=== PATIENT | female | born 1970 | race Caucasian/White ===

== ENCOUNTER 2018-08-28 19:57 | Emergency (ER) | payer OTHER, SELFPAY ==
[2018-08-28 20:03] VITALS: BP 145/99; PULSE 95; RESP 16; TEMP 36.7; O2SAT 95
[2018-08-28] MEDS: MORPHine 10 MG/ML VIAL 6 MG IVP ×2 (20:13→20:48)
--- NOTE | 2018-08-28 20:14 | ED.GENADUL_ITS ---
Discharge Plan Disposition Patient Disposition: HOME Condition: Stable Discharge Details Chief Complaint: Orthopedic Clinical Impression: Closed left trimalleolar fracture Primary Care Provider: None,None ED Provider: Chano Bean Home Meds and New Rx's Prescriptions: New hydromorphone [Dilaudid] 2 mg tablet 2 mg PO Q6H PRN (Reason: pain) Qty: 12 RF: 0 Discharge Instructions Instructions: Ankle Fracture (ED) Additional Instructions: you have a trimalleolar fracture in the left ankle. You need to contact your primary care provider on Thursday for an orthopedist referral as soon as possible as these are generally operated on within a week for pain take ibuprofen or aleve and tylenol every 6 hours for pain as needed, follow dosing instructions on packaging. If you need more pain meds take 1 dilaudid tablet, do not drive or drink alcohol if you take this medicine Medical Decision Making 47 yo who denies chronic medical problems comes in with chief complaint of left ankle pain after slipping on ice. Denies hitting head or loc. She has no headache, neck pain even on rom, chest pain, abd pain. HAs pain with deformity to the left ankle. Has intact cap refill and sensation with 2+ dp/pt pulses. Will xray as likely has fx/dislocation xray confirms trimalleolar fx. Spoke with Dr. durbin from ortho who suggest closed reduction and f/u this week. [place] so will f/u with orthopedist in their area. She wants to attempt reduction without procedural sedation first. Will try this successful reduction with improved alignment on f/u xray using just IV morphine. Pt will f/u with ortho in [place]. She was instructed to be nonweight bearing Differential Diagnosis fx, dislocation Imaging Data Radiologic Study: Attestation: I personally reviewed and interpreted this imaging study as follows: Imaging: X-Ray Radiologist's impression: FINDINGS: Bones/joints: Acute trimalleolar ankle fracture dislocation. The ankle mortise is disrupted. Approximately 9 mm lateral subluxation of the talus relative to the tibia. Moderately distracted fracture of the medial malleolus of the tibia. Moderately apex medial angulated fracture of the distal fibular diaphysis extending to the level of ankle mortise. Moderately distracted posterior malleolus fracture, tibial plafond and may be somewhat impacted upon the tibia posteriorly. Mild anterior translation of the tibial plafond relative to the talar dome. Anterior widening of the tibiotalar space. Posterior calcaneal spur. No definite defects are identified in the talar dome radiographically. Soft tissues: Generalized soft tissue swelling. IMPRESSION: Acute trimalleolar ankle fracture dislocation. Radiologic Study #2: Attestation: I personally reviewed and interpreted this imaging study as follows: Imaging: X-Ray Radiologist's impression: IMPRESSION: Significant improvement in the alignment of the ankle mortise involving the trimalleolar fracture. HPI General Mode of arrival: wheelchair . Date/Time Provider Initiated Documentation: 08/28/18 19:59 . Limitations to Documentation: no limitations . Information obtained by: patient . History of Present Illness 47 year old F presents to the emergency department with the chief complaint of left ankle pain, described as severe, with intensity rated at 10. Quality is described as sharp, and is localized to the left and lower extremity. Patient reports no radiation. and it has been constant. Rest improves symptom(s), Movement worsens symptoms . Patient notes no other symptoms.. Patient did receive the following treatments prior to arrival, none Related Data Home Medications Medication Instructions Recorded Confirmed hydromorphone [Dilaudid] 2 mg PO Q6H PRN #12 tab 08/28/18 Previous Rx's Medication Instructions Recorded hydromorphone [Dilaudid] 2 mg PO Q6H PRN #12 tab 08/28/18 Allergies Allergy/AdvReac Type Severity Reaction Status Date / Time acetaminophen [From Percocet] Allergy Hives Unverified 08/28/18 20:08 codeine Allergy Hives Unverified 08/28/18 20:08 oxycodone [From Percocet] Allergy Hives Unverified 08/28/18 20:08 General Stated Complaint: Orthopedic ZAC: 3 Review of Systems Review of Systems All systems reviewed & are unremarkable except as noted in HPI and below Constitutional Denies chills and Denies fever(s) ENT Denies change in voice Cardiovascular Denies chest pain and Denies dyspnea Respiratory Denies cough and Denies dyspnea Gastrointestinal Denies abdominal pain, Denies nausea and Denies vomiting Genitourinary Denies dysuria Musculoskeletal Denies joint swelling PFSH Social History Smoking/Tobacco Use Status: Former Tobacco Use Substance use type: does not use Additional Social history: unable to assess privately Exam Const General: no acute distress Orientation: alert HENMT Head: normal to inspection Ears: external ears normal General nose exam: external nose normal Mouth: moist mucous membranes Eyes General: appearance normal, both eyes and all related structures Neck Neck: normal visual inspection Resp Effort & Inspection: normal respiratory effort and able to speak in complete sentences Cardio Rate: regular rate Skin General skin exam: no rashes or lesions noted Neuro General: alert and oriented x3 Extrem General: normal capillary refill Psych Mental Status: mental status grossly normal Course Vital Signs Temperature 36.7 C 08/28/18 20:03 Pulse 95 H 08/28/18 20:03 Respiratory Rate 16 08/28/18 20:03 Blood Pressure 145/99 H 08/28/18 20:03 Pulse Oximetry 95 08/28/18 20:03 Temperature 36.7 C 08/28/18 20:03 Temperature Source Temporal Artery Scan 08/28/18 20:03 Pulse 95 H 08/28/18 20:03 Respiratory Rate 16 08/28/18 20:03 Blood Pressure 145/99 H 08/28/18 20:03 Blood Pressure Position Sitting 08/28/18 20:03 Pulse Oximetry 95 08/28/18 20:03 Oxygen Delivery Method Room Air 08/28/18 20:03 Oxygen Flow Rate 0 08/28/18 20:03 Pain Level 10 08/28/18 20:03
--- NOTE | 2018-08-28 20:29 | DI.RAD_ITS ---
SYMPTOM/DIAGNOSIS: PAIN, S/P FALL, POST REDUCTION VIEWS LEFT ANKLE: Three views. No priors. There is a fracture through the base of the medial malleolus with moderate distraction of the fracture noted. There is an oblique fracture extending from the distal metadiaphyseal junction of the left fibula inferiorly to the level of the ankle joint. The distal fracture is angulated laterally. There is a moderately distracted fracture of the posterior malleolus. The talus is moderately dislocated laterally relative to the tibia. The anterior fracture is also anteriorly displaced relative to the talus. There is soft tissue swelling about the ankle bilaterally. IMPRESSION: Trimalleolar fracture dislocation of the left ankle. POST REDUCTION LEFT ANKLE: Two views. Comparison is made with examination from earlier in the day. There has been significant improvement and alignment of the left ankle. There is still mild widening of the medial ankle joint. There has been significant improvement in the distracted medial malleolar fracture and the displaced distal fibular fracture. The posterior malleolar fracture still shows mild displacement. The patient's ankle is in a cast. IMPRESSION: Significant improvement in the alignment of the left ankle fracture dislocation.
--- NOTE | 2018-08-28 20:38 | DI.VRAD_ITS ---
EXAM: XR Left Ankle Complete, 3 or more Views EXAM DATE/TIME: 08/28/2018 8:09 PM CLINICAL HISTORY: 47 years old, female; Pain; Ankle; Left TECHNIQUE: XR Left ankle 3 or more views. COMPARISON: No relevant prior studies available. FINDINGS: Bones/joints: Acute trimalleolar ankle fracture dislocation. The ankle mortise is disrupted. Approximately 9 mm lateral subluxation of the talus relative to the tibia. Moderately distracted fracture of the medial malleolus of the tibia. Moderately apex medial angulated fracture of the distal fibular diaphysis extending to the level of ankle mortise. Moderately distracted posterior malleolus fracture, tibial plafond and may be somewhat impacted upon the tibia posteriorly. Mild anterior translation of the tibial plafond relative to the talar dome. Anterior widening of the tibiotalar space. Posterior calcaneal spur. No definite defects are identified in the talar dome radiographically. Soft tissues: Generalized soft tissue swelling. IMPRESSION: Acute trimalleolar ankle fracture dislocation. Dictated and Authenticated by: Corina Garcia MD. Ordering:EDUARDO Madden MD
[2018-08-28] MEDS: HYDROmorphone 2 MG TAB PO ×3 (21:03→21:33)
--- NOTE | 2018-08-28 21:21 | DI.VRAD_ITS ---
EXAM: XR Left Ankle, 1 or 2 Views EXAM DATE/TIME: 08/28/2018 9:01 PM CLINICAL HISTORY: 47 years old, female; Signs and symptoms; Other: Post reduction TECHNIQUE: XR Left ankle 1 or 2 views. COMPARISON: CR XR ANKLE LT COMPLETE 08/28/2018 8:20 PM FINDINGS: Bones/joints: Significant improvement in the alignment of the ankle mortise involving the trimalleolar fracture. There is mild residual widening of the medial tibiotalar joint. The lateral subluxation of the tibiotalar joint has been reduced. Distraction of the medial malleolar fracture fragment has been reduced. Angulation of the fibular fracture fragment and distraction of the fibular fracture fragment has reduced. Distraction of the posterior malleolar fracture fragment has reduced. Soft tissues: Generalized soft tissue swelling. Overlying splint obscures the bony detail. IMPRESSION: Significant improvement in the alignment of the ankle mortise involving the trimalleolar fracture. Dictated and Authenticated by: Corina Garcia MD. Ordering:EDUARDO Madden MD
== END 2018-08-28 21:48 | disposition home or self-care (01) ==
PROVIDERS: Emergency Provider Emergency Medicine
DX: S82.852A Displaced trimalleolar fracture of left lower leg, initial encounter for closed fracture (principal); W00.0XXA Fall on same level due to ice and snow, initial encounter
CPT/HCPCS: 96374; 96376; 99284; 73600; 73610; E0114; J2270; J3490